=== PATIENT | male | born 2000 | race Caucasian/White ===

== ENCOUNTER 2022-02-22 12:12 | Emergency (ER) | payer MEDICAID ==
[~2022-02-22] VITALS: Ht 165.1 cm; Wt 92.0 kg
[2022-02-22 12:40] VITALS: BP 116/72
== END 2022-02-22 13:43 | disposition home or self-care (01) ==
LOC: ER 12:13
DX: Z76.89 Persons encountering health services in other specified circumstances (principal)
CPT/HCPCS: 99281

== ENCOUNTER 2022-07-23 08:40 | Emergency (ER) | payer MEDICAID ==
[~2022-07-23] VITALS: Ht 167.6 cm; Wt 95.0 kg
[2022-07-23 08:54] VITALS: BP 128/68
[2022-07-23] MEDS ORDERED: OMEP40CA21 PO (10:59)
== END 2022-07-23 11:09 | disposition home or self-care (01) ==
LOC: ER 08:41
DX: K92.0 Hematemesis (principal); R12 Heartburn; R04.2 Hemoptysis
CPT/HCPCS: 99282

== ENCOUNTER 2023-12-18 01:02 | Emergency (ER) | payer MEDICAID ==
[~2023-12-18] VITALS: Ht 167.6 cm; Wt 95.5 kg
[2023-12-18 01:05] VITALS: TEMP 98
[2023-12-18] MEDS: pantoprazole 40mg Tablet.DR PO ONE (03:23)
[2023-12-18] MEDS: famotidine 20mg tablet PO ONE (03:23)
[2023-12-18] MEDS: ondansetron 4mg rapidly disintigrating tab PO ONE (03:23)
[2023-12-18] MEDS: mag hydrox/Alum hydrox/simeth 30ml oral suspension PO ONE (03:24)
[2023-12-18] MEDS: LIDOcaine 2% Viscous 15ml cup MM ONE (03:24)
[2023-12-18] MEDS ORDERED: NO HOME MEDS (03:44)
[2023-12-18 03:50] LABS: BASOPHILS # (AUTO) 0.1 X10'3 (0-0.2); EOSINOPHILS # (AUTO) 0.1 X10'3 (0-0.9); EOSINOPHILS % (AUTO) 1.4 % (0-6); HEMATOCRIT 39.3 % (42.0-52.0); LYMPHOCYTES # (AUTO) 2.5 X10'3 (1.1-4.8); LYMPHOCYTES % (AUTO) 31.6 % (21-51); MEAN CORPUSCULAR HEMOGLOBIN 26.1 PG (27.0-31.0); MEAN CORPUSCULAR VOLUME 79.1 FL (78-98); MEAN PLATELET VOLUME 8.3 FL (7.4-10.4); NEUTROPHILS # (AUTO) 4.4 X10'3 (1.8-7.7); PLATELET COUNT 327 X10'3 (140-440); RED BLOOD COUNT 4.97 X10'6 (4.70-6.10); RED CELL DISTRIBUTION WIDTH 16.1 % (11.5-14.5); WHITE BLOOD COUNT 8.1 X10'3 (4.5-11.0)
[2023-12-18 04:02] LABS: ALBUMIN 3.6 G/DL (3.4-5.0); ANION GAP 8 (8-16); BLOOD UREA NITROGEN 10 MG/DL (7-18); BUN/CREATININE RATIO 9.6 (10.0-20.0); CALCIUM 9.2 MG/DL (8.5-10.1); CHLORIDE 104 MMOL/L (99-107); CREATININE 1.04 MG/DL (0.60-1.10); GLUCOSE 102 MG/DL (70-104); POTASSIUM 3.5 MMOL/L (3.5-5.1); SODIUM 140 MMOL/L (135-145); eCRCL 101 ML/MIN; eGFR 90 ML/MIN
[2023-12-18 04:07] LABS: APTT 27 SECONDS (22-32); PROTHROMBIN TIME 10.9 SECONDS (9.0-12.0)
[2023-12-18] MEDS ORDERED: PANT-47 PO (04:24)
[2023-12-18 04:33] VITALS: BP 130/78; PULSE 82; RESP 18; O2SAT 99
== END 2023-12-18 04:35 | disposition home or self-care (01) ==
LOC: ER 01:03
DX: K27.4 Chronic or unspecified peptic ulcer, site unspecified, with hemorrhage (principal); R11.2 Nausea with vomiting, unspecified
CPT/HCPCS: 36415; 80048; 85025; 85610; 85730; 86885; 86900; 86901; 99284